=== PATIENT | male | born 1960 | race Two or more races ===

== ENCOUNTER 2022-03-06 11:06 | Emergency (ER) | payer BC ==
[2022-03-06 12:38] VITALS: BMI 30.7
[2022-03-06] MEDS ORDERED: MECLIZINE HCL 12.5 MG TABLET PO ONE (14:52)
[2022-03-06 15:41] LABS: HEMATOCRIT 45.2 % (35.4-49); HEMOGLOBIN 15.6 GM/dL (11.7-16.9); MCH 29.7 pg (25.7-33.7); MCHC 34.5 g/dl (32.0-35.9); MEAN CELL VOLUME 85.9 fl (80-96); MEAN PLT VOLUME 8.9 fl (7.5-11.1); PLATELET COUNT 214 10^3/uL (134-434); RBC 5.26 M/mm3 (4.00-5.60); RDW 13.7 % (11.9-15.9); WHITE BLOOD COUNT 6.3 K/mm3 (4.0-10.0)
[2022-03-06 16:07] LABS: CALCIUM 9.1 mg/dL (8.5-10.1)
[2022-03-06 16:11] LABS: CREATININE 0.7 mg/dL (0.55-1.3)
[2022-03-06 16:12] LABS: BILIRUBIN,TOTAL 0.5 mg/dL (0.2-1); TOT PROT 7.5 g/dl (6.4-8.2)
[2022-03-06] MEDS ORDERED: MECLIZINE HCL 12.5 MG TABLET ONE (17:15)
[2022-03-06 18:19] VITALS: BP 121/77; PULSE 50; RESP 19; TEMP 98
== END 2022-03-06 18:23 | disposition home or self-care (01) ==
LOC: JER 11:06
DX: R55 Syncope and collapse (principal); R07.9 Chest pain, unspecified
CPT/HCPCS: 36415; 70450-TC; 71046-TC-FY; 80053; 83690; 84484; 85027; 93005; 93010; 99285-25